=== PATIENT | male | born 1970 | race Caucasian/White ===

== ENCOUNTER 2017-08-24 07:44 | Emergency (ER) | payer SELFPAY ==
[~2017-08-24] VITALS: Ht 193 cm; Wt 142.0 kg
[~2017-08-24 07:44] MED LIST: NORCO 5/3251 TABLET PO; PRILOSEC OTC20 MG PO; ZOFRAN ODT8 MG PO
[2017-08-24] MEDS ORDERED: TRAMADOL HCL50 MG PO (09:06)
[2017-08-24] MEDS ORDERED: NAPROSYN500 MG PO (09:06)
[2017-08-24] MEDS ORDERED: FLEXERIL10 MG PO (09:06)
[2017-08-24 09:20] VITALS: BP 140/102
== END 2017-08-24 09:20 | disposition home or self-care (01) ==
LOC: EME 07:44
DX: S46.012A Strain of muscle(s) and tendon(s) of the rotator cuff of left shoulder, initial encounter (principal); X50.9XXA Other and unspecified overexertion or strenuous movements or postures, initial encounter; Y99.0 Civilian activity done for income or pay; F17.200 Nicotine dependence, unspecified, uncomplicated; Z91.018 Allergy to other foods
CPT/HCPCS: 99281; 99283; J1885